=== PATIENT | male | born 1970 | race African-American/Black ===

== ENCOUNTER 2024-03-14 15:27 | Inpatient (IN) | payer OTHER ==
[2024-03-14] MEDS ORDERED: ONDANSETRON *ODT* 4 MG TABLET ONE (17:46)
[2024-03-14] MEDS ORDERED: PHENYTOIN NA EXTENDED 100 MG CAPSULE (FP) ONE (17:46)
[2024-03-14] MEDS ORDERED: diazePAM 5 MG TABLET ONE (17:47)
[2024-03-14 17:53] LABS: BASO % 0.7 % (0-2.0); EOS % 3.2 % (0-4.5); HEMATOCRIT 45.7 % (35.4-49); LYMPH % 34.4 % (8-40); MCH 31.6 pg (25.7-33.7); MCHC 32.8 g/dl (32.0-35.9); MEAN CELL VOLUME 96.5 fl (80-96); MEAN PLT VOLUME 7.9 fl (7.5-11.1); MONO % 9.2 % (3.8-10.2); NEUT % 52.5 % (42.8-82.8); PLATELET COUNT 290 10^3/uL (134-434); RBC 4.74 M/mm3 (4.00-5.60); RDW 13.4 % (11.9-15.9); WHITE BLOOD COUNT 6.1 K/mm3 (4.0-10.0)
[2024-03-14] MEDS: PHENYTOIN NA EXTENDED 100 MG CAPSULE (FP) PO ONE (17:59)
[2024-03-14] MEDS: SODIUM CHLORIDE 0.9% 1000 ML INFUS.BAG IV ONE (18:00)
[2024-03-14] MEDS: diazePAM 5 MG TABLET PO ONE (18:01)
[2024-03-14] MEDS: ONDANSETRON 4 MG TABLET PO ONE (18:01)
[2024-03-14 18:06] LABS: CALCIUM 9.5 mg/dL (8.5-10.1)
[2024-03-14 18:07] LABS: ALBUMIN 3.9 g/dl (3.4-5.0); BLOOD UREA NITROGEN 18.3 mg/dL (7-18)
[2024-03-14 18:10] LABS: CREATININE 1.1 mg/dL (0.55-1.3)
[2024-03-14 18:12] LABS: BILIRUBIN,TOTAL 0.7 mg/dL (0.2-1); TOT PROT 7.3 g/dl (6.4-8.2)
[2024-03-14] MEDS ORDERED: QUEtiapine FUMARATE 25 MG TABLET ONE (21:55)
[2024-03-14] MEDS: QUEtiapine FUMARATE 25 MG TABLET PO SCH (21:59)
[2024-03-14] MEDS ORDERED: ONDANSETRON 4 MG/2 ML VIAL IVPUSH PRN (23:33)
[2024-03-14] MEDS ORDERED: chlordiazePOXIDE HCL 25 MG CAPSULE PO PRN (23:33)
[2024-03-15] MEDS ORDERED: chlordiazePOXIDE HCL 25 MG CAPSULE ONE ×2 (00:12→00:15)
[2024-03-15] MEDS: chlordiazePOXIDE HCL 25 MG CAPSULE PO SCH (00:15)
[2024-03-15 02:40] VITALS: BMI 25.4
[2024-03-15] MEDS: PHENYTOIN NA EXTENDED 100 MG CAPSULE (FP) PO SCH ×2 (07:50→22:54)
[2024-03-15 09:11] LABS: HEMATOCRIT 44.8 % (35.4-49); HEMOGLOBIN 14.9 GM/dL (11.7-16.9); MCH 32.1 pg (25.7-33.7); MCHC 33.2 g/dl (32.0-35.9); MEAN CELL VOLUME 96.5 fl (80-96); MEAN PLT VOLUME 7.8 fl (7.5-11.1); PLATELET COUNT 268 10^3/uL (134-434); RBC 4.64 M/mm3 (4.00-5.60); RDW 13.7 % (11.9-15.9); WHITE BLOOD COUNT 4.7 K/mm3 (4.0-10.0)
[2024-03-15 09:15] LABS: POTASSIUM 4.2 mmol/L (3.5-5.1)
[2024-03-15] MEDS: ENOXAPARIN NA (PORCINE) 40 MG/0.4 ML DISP.SYRIN SQ SCH (09:18)
[2024-03-15] MEDS: THIAMINE 100 MG TABLET PO SCH (09:18)
[2024-03-15] MEDS: FOLIC ACID 1 MG TABLET (FP) PO SCH (09:18)
[2024-03-15 09:20] LABS: ALBUMIN 3.1 g/dl (3.4-5.0); BLOOD UREA NITROGEN 17.4 mg/dL (7-18); CALCIUM 8.5 mg/dL (8.5-10.1); MAGNESIUM 2.4 mg/dL (1.8-2.4)
[2024-03-15 09:23] LABS: CREATININE 1.1 mg/dL (0.55-1.3)
[2024-03-15 09:24] LABS: PHOSPHOROUS 3.2 mg/dL (2.5-4.9)
[2024-03-15 09:25] LABS: BILIRUBIN,TOTAL 0.5 mg/dL (0.2-1); TOT PROT 5.9 g/dl (6.4-8.2)
[2024-03-15 12:56] LABS: HIV INTERPRETATION NEGATIVE (NEGATIVE)
[2024-03-16] MEDS: chlordiazePOXIDE HCL 25 MG CAPSULE PO SCH (06:30)
[2024-03-16 08:41] LABS: BASO % 1.2 % (0-2.0); EOS % 7.6 % (0-4.5); HEMATOCRIT 46.8 % (35.4-49); HEMOGLOBIN 15.6 GM/dL (11.7-16.9); LYMPH % 55.2 % (8-40); MCH 32.3 pg (25.7-33.7); MCHC 33.4 g/dl (32.0-35.9); MEAN CELL VOLUME 96.6 fl (80-96); MEAN PLT VOLUME 7.8 fl (7.5-11.1); PLATELET COUNT 271 10^3/uL (134-434); RBC 4.84 M/mm3 (4.00-5.60); RDW 13.6 % (11.9-15.9); WHITE BLOOD COUNT 3.5 K/mm3 (4.0-10.0)
[2024-03-16 08:58] LABS: CHLORIDE 111 mmol/L (98-107); POTASSIUM 4.3 mmol/L (3.5-5.1); SODIUM 142 mmol/L (136-145)
[2024-03-16 09:00] LABS: CALCIUM 8.9 mg/dL (8.5-10.1)
[2024-03-16 09:01] LABS: ALBUMIN 3.2 g/dl (3.4-5.0); ANION GAP 3 mmol/L (4-13); BLOOD UREA NITROGEN 13.8 mg/dL (7-18); CO2 28 mmol/L (21-32); GLUCOSE,RANDOM 86 mg/dL (74-106); MAGNESIUM 2.2 mg/dL (1.8-2.4)
[2024-03-16 09:03] LABS: SGPT/ALT 23 U/L (13-61)
[2024-03-16 09:04] LABS: CREATININE 1.1 mg/dL (0.55-1.3); SGOT/AST 8 U/L (15-37)
[2024-03-16 09:05] LABS: BILIRUBIN,TOTAL 0.4 mg/dL (0.2-1); TOT PROT 6.1 g/dl (6.4-8.2)
[2024-03-16 09:07] LABS: ALK PHOS 62 U/L (45-117)
[2024-03-16 14:44] LABS: URINE AMPHETAMINES NEGATIVE (NEGATIVE); URINE BARBITURATES NEGATIVE (NEGATIVE); URINE BENZODIAZEPINES NEGATIVE (NEGATIVE)
[2024-03-16 14:45] LABS: COCAINE, UR NEGATIVE (NEGATIVE); METHADONE, UR NEGATIVE (NEGATIVE); OPIATES, URI NEGATIVE (NEGATIVE); PHENCYCLIDINE,URINE NEGATIVE (NEGATIVE)
[2024-03-16] MEDS: NICOTINE 14 MG/24 HOURS TOPICAL PATCH TD SCH (15:41)
[2024-03-17] MEDS ORDERED: chlordiazePOXIDE HCL 10 MG CAPSULE PO PRN
[2024-03-17 05:12] LABS: METHADONE, UR NEGATIVE (NEGATIVE); URINE BARBITURATES NEGATIVE (NEGATIVE)
[2024-03-17 05:43] LABS: COCAINE, UR POSITIVE (NEGATIVE); OPIATES, URI NEGATIVE (NEGATIVE); PHENCYCLIDINE,URINE NEGATIVE (NEGATIVE); URINE AMPHETAMINES NEGATIVE (NEGATIVE); URINE BENZODIAZEPINES POSITIVE (NEGATIVE)
[2024-03-17] MEDS: chlordiazePOXIDE HCL 10 MG CAPSULE PO SCH (06:14)
[2024-03-17] MEDS: ONDANSETRON 4 MG TABLET PO PRN (20:28)
[2024-03-17] MEDS: MIRTAZAPINE 15 MG TABLET (FP) PO SCH (21:39)
[2024-03-18] MEDS: chlordiazePOXIDE HCL 10 MG CAPSULE PO SCH (05:24)
[2024-03-18 09:32] LABS: BASO % 1.1 % (0-2.0); EOS % 7.4 % (0-4.5); HEMATOCRIT 45.8 % (35.4-49); HEMOGLOBIN 15.6 GM/dL (11.7-16.9); LYMPH % 49.1 % (8-40); MCH 32.3 pg (25.7-33.7); MCHC 33.9 g/dl (32.0-35.9); MEAN CELL VOLUME 95.2 fl (80-96); MEAN PLT VOLUME 7.9 fl (7.5-11.1); MONO % 9.7 % (3.8-10.2); NEUT % 32.7 % (42.8-82.8); PLATELET COUNT 269 10^3/uL (134-434); RBC 4.82 M/mm3 (4.00-5.60); RDW 13.9 % (11.9-15.9); WHITE BLOOD COUNT 4.3 K/mm3 (4.0-10.0)
[2024-03-19] MEDS: chlordiazePOXIDE HCL 10 MG CAPSULE PO ONE (06:03)
[2024-03-19] MEDS: ACETAMINOPHEN 500 MG TABLET (FP) PO PRN (06:04)
[2024-03-19] MEDS: MAG HYDROX/AL HYDROX/SIMETH 30 ML UNIT-DOSE CUP PO ONE (06:35)
[2024-03-20] MEDS ORDERED: ONDANSETRON *ODT* 4 MG TABLET SL PRN (09:16)
[2024-03-21 04:47] VITALS: RESP 18
[2024-03-21] MEDS: POLYETHYLENE GLYCOL (HEALTHYLAX) 3350 17 GM PACKET PO SCH (16:04)
[2024-03-21] MEDS: LIDOCAINE 4% PATCH TP ONE (16:04)
[2024-03-21] MEDS: LIDOCAINE PATCH REMOVAL MC SCH (21:17)
[2024-03-23 14:06] VITALS: BP 137/41; PULSE 56; TEMP 98.1
== END 2024-03-23 19:31 | disposition other institution (70) | DRG 53 ==
LOC: JER 15:27 → JERBED 19:37 → OBSVTOIN 20:30 → J6S 03-15 02:13
PROVIDERS: ADMIT Internal Medicine; ATTEND Internal Medicine
PROC: HZ2ZZZZ Detoxification Services for Substance Abuse Treatment (ICD-10-PCS; principal; 2024-03-14)
DX: G40.909 Epilepsy, unspecified, not intractable, without status epilepticus (principal); F10.939 Alcohol use, unspecified with withdrawal, unspecified; F19.10 Other psychoactive substance abuse, uncomplicated; F31.9 Bipolar disorder, unspecified; F20.9 Schizophrenia, unspecified; Z59.00 Homelessness unspecified
CPT/HCPCS: 36415; 70450-TC; 71045-TC-FY; 73110-TC-RT-FY; 73130-TC-RT-FY; 74018-TC-FY; 80053; 80185; 80186; 80307; 82962; 83690; 83735; 84100; 84443; 84484; 85025; 85027; 86803; 87389; 93005; 93010; 95816; 97116-GP; 97161-GP; 99285-25; G0378

== ENCOUNTER 2024-03-29 22:09 | Emergency (ER) | payer OTHER ==
[2024-03-29 22:20] VITALS: BMI 28.9
[2024-03-29] MEDS ORDERED: ACETAMINOPHEN 325 MG TABLET (FP) ONE (23:35)
[2024-03-29] MEDS: ACETAMINOPHEN 325 MG TABLET (FP) PO ONE (23:57)
[2024-03-30 00:53] LABS: HIV INTERPRETATION NEGATIVE (NEGATIVE)
[2024-03-30 02:16] VITALS: BP 112/58; PULSE 69; RESP 19; TEMP 98.2
== END 2024-03-30 02:51 | disposition home or self-care (01) ==
LOC: JER 22:09
DX: R07.89 Other chest pain (principal); R51.9 Headache, unspecified; M54.9 Dorsalgia, unspecified; Y04.0XXA Assault by unarmed brawl or fight, initial encounter
CPT/HCPCS: 36415; 70450-TC; 71046-TC-FY; 71101-TC-LT-FY; 72125-TC; 86803; 87389; 93005; 93010; 99285-25

== ENCOUNTER 2024-05-18 12:18 | Emergency (ER) | payer OTHER ==
[2024-05-18 12:44] VITALS: BP 135/87; PULSE 92; RESP 18; TEMP 98.7; BMI 28.8
[2024-05-18] MEDS ORDERED: PHENYTOIN NA EXTENDED 100 MG CAPSULE (FP) PO ONE (14:10)
[2024-05-18] MEDS ORDERED: PHENYTOIN NA EXTENDED 100 MG CAPSULE (FP) ONE (14:35)
== END 2024-05-18 14:55 | disposition home or self-care (01) ==
LOC: JER 12:18
DX: F11.90 Opioid use, unspecified, uncomplicated (principal); F14.90 Cocaine use, unspecified, uncomplicated
CPT/HCPCS: 99283-25

== ENCOUNTER 2024-07-01 20:27 | Emergency (ER) | payer OTHER ==
[2024-07-01 20:34] VITALS: RESP 18; BMI 33.2
[2024-07-01] MEDS ORDERED: ACETAMINOPHEN INJECTION 100 ML ONE (22:03)
[2024-07-01] MEDS ORDERED: METOCLOPRAMIDE HCL INJECTION 10 MG/2 ML VIAL ONE (22:04)
[2024-07-01] MEDS: ACETAMINOPHEN 1000 MG/100 ML BAG IVPB ONE (22:40)
[2024-07-01] MEDS: SODIUM CHLORIDE 0.9% 500 ML INFUS.BAG IV ONE (22:40)
[2024-07-01] MEDS: METOCLOPRAMIDE HCL INJECTION 10 MG/2 ML VIAL IVPB ONE (22:52)
[2024-07-02 00:35] VITALS: BP 112/58; PULSE 94; TEMP 98.8
== END 2024-07-02 10:59 | disposition home or self-care (01) ==
LOC: JER 20:27
DX: R51.9 Headache, unspecified (principal); Y04.8XXA Assault by other bodily force, initial encounter
CPT/HCPCS: 70450-TC; 71046-TC-FY; 93005; 93010; 99284-25; J0131